=== PATIENT | male | born 1990 | race Caucasian/White ===

== ENCOUNTER 2018-12-07 19:30 | Emergency (ER) | payer OTHER ==
[~2018-12-07] VITALS: Ht 170.2 cm; Wt 68.0 kg
[~2018-12-07 19:30] MED LIST: CALCIUM; FISHOIL; GLUCOSAMINE &1 EACH PO; MAGNES
[2018-12-07] MEDS ORDERED: ACETAMINOPHEN-1 EAC1 PO (20:43)
[2018-12-07] MEDS ORDERED: NAPROSYN500 MG PO (20:43)
[2018-12-07 21:00] VITALS: BP 114/60
== END 2018-12-07 21:00 | disposition home or self-care (01) ==
LOC: M.ERS 19:30
DX: M54.5 Low back pain (principal); M25.551 Pain in right hip; Z88.0 Allergy status to penicillin; Z90.49 Acquired absence of other specified parts of digestive tract